=== PATIENT | male | born 1985 | race Two or more races ===

== ENCOUNTER 2017-02-10 19:27 | Emergency (ER) | payer BC ==
[~2017-02-10] VITALS: Ht 165.1 cm; Wt 81.6 kg
[2017-02-10 19:48] VITALS: BP 138/87
[2017-02-10] MEDS ORDERED: DIPHTH,PERTUSS(ACELL),TET TOX 0.5 ML DISP.SYRIN. VAX IM ONE (20:00)
[2017-02-10] MEDS ORDERED: MUPI15CR TP (20:15)
[2017-02-10] MEDS ORDERED: SULF1TAB24 PO (20:15)
--- NOTE | 2017-02-10 20:15 | PHYS DOC ---
Past Medical History Past Medical History: No Pertinent History Past Surgical History: No Surgical History Alcohol Use: None Drug Use: None Adult General Chief Complaint Chief Complaint: SKIN RASH/ABSCESS [facility] HPI Patient is a 31 year old male who presents with a rash on his right chin and lower lip that began 4 days ago was called supple and is now draining yellow purulent material. He is also complaining of subjective fevers. Review of Systems Review of Systems Constitutional: Subjective fevers Eyes: Denies change in visual acuity, redness, or eye pain [] HENT: Denies nasal congestion or sore throat [] Respiratory: Denies cough or shortness of breath [] Cardiovascular: No additional information not addressed in HPI [] Musculoskeletal: Denies back pain or joint pain [] Integument: rash on his right chin and lower lip Neurologic: Denies headache, focal weakness or sensory changes [] Current Medications Current Medications Current Medications Medications (Trade) Dose Ordered Sig/Carrol Start Time Stop Time Status Last Admin Dose Admin Diphtheria/ Tetanus/Acell Pertussis (Boostrix) 0.5 ml ONCE ONCE 02/10/17 20:00 02/10/17 20:04 DC Allergies Allergies Allergies Coded Allergies Type Severity Reaction Last Updated Verified No Known Drug Allergies 02/10/17 No Physical Exam Physical Exam Constitutional: Well developed, well nourished, no acute distress, non-toxic appearance. [] HENT: Normocephalic, atraumatic, bilateral external ears normal, oropharynx moist, no oral exudates, nose normal. [] Eyes: PERRLA, EOMI, conjunctiva normal, no discharge. [] Neck: Normal range of motion, no tenderness, supple, no stridor. [] Cardiovascular:Heart rate regular rhythm, no murmur [] Lungs & Thorax: Bilateral breath sounds clear to auscultation [] Skin: Patient has moderate amount of impetigo lesions on his right chin and right lower lip. Some of them are draining yellow drainage, there is crusty dry drainage on the lesions as well. Back: No tenderness, no CVA tenderness. [] Extremities: No tenderness, no cyanosis, no clubbing, ROM intact, no edema. [] Neurologic: Alert and oriented X 3, normal motor function, normal sensory function, no focal deficits noted. [] Psychologic: Affect normal, judgement normal, mood normal. [] Current Patient Data Vital Signs Vital Signs Date Time Temp Pulse Resp B/P (MAP) Pulse Ox O2 Delivery O2 Flow Rate FiO2 02/10/17 19:48 99.1 88 16 96 Room Air 99.1 EKG EKG [] Radiology/Procedures Radiology/Procedures [] Course & Med Decision Making Course & Med Decision Making Pertinent Labs and Imaging studies reviewed. (See chart for details) Patient has impetigo on his chin and lower lip that began as cold sores and a temperature of 99.1. He was discharged with Bactrim and Bactroban ointment. He was given tetanus in the ED, importance of good hygiene emphasis. Tylenol and Motrin recommended for pain or fever. Dragon Disclaimer Dragon Disclaimer This electronic medical record was generated, in whole or in part, using a voice recognition dictation system. Departure Departure Impression: Primary Impression: Fever Additional Impression: Impetigo Disposition: HOME, SELF-CARE Condition: STABLE Referrals: NO PCP (PCP) follow up with your doctor in one week Patient Instructions: Impetigo Additional Instructions: You were seen for impetigo lesions, this is a skin infection that usually starts from other infections like cold sores. You were given tetanus vaccine in the ED. Use the prescribed antibiotics as ordered. Maintain very good hand hygiene. Take Tylenol every 4 hours and Motrin every 6 hours as needed for pain or fever. Follow-up with your doctor in 1-2 weeks. Scripts Mupirocin Calcium (BACTROBAN CREAM) 15 Gm Cream..g. 1 TAPAN TP TID, #30 GM Prov: MARIFER MARC APRN 02/10/17 Sulfamethoxazole/Trimethoprim (BACTRIM DS TABLET) 1 Each Tablet 1 TAB PO BID, #20 TAB Prov: MARIFER MARC APRN 02/10/17 Problem Qualifiers Primary Impression: Fever Fever type: unspecified Qualified Codes: R50.9 - Fever, unspecified MARIFER MARC APRN Feb 10, 2017 20:15
== END 2017-02-10 20:27 | disposition home or self-care (01) ==
LOC: ER 20:05
DX: L01.00 Impetigo, unspecified (principal)
CPT/HCPCS: 90471; 90715; 99283-25

== ENCOUNTER 2017-02-21 14:25 | Emergency (ER) | payer BC ==
[~2017-02-21] VITALS: Ht 165.1 cm; Wt 81.6 kg
[~2017-02-21 14:25] MED LIST: MUPI15CR TP; SULF1TAB24 PO
[2017-02-21 14:34] VITALS: BP 127/72
[2017-02-21] MEDS ORDERED: CETI10TA22 PO (15:53)
[2017-02-21] MEDS ORDERED: PRED-220 PO (15:53)
[2017-02-21] MEDS ORDERED: FAMO20TA5 PO (15:53)
--- NOTE | 2017-02-21 15:53 | PHYS DOC ---
Past Medical History Past Medical History: No Pertinent History Past Surgical History: No Surgical History Alcohol Use: None Drug Use: None Adult General Chief Complaint Chief Complaint: SKIN RASH/ABSCESS [facility] HPI Patient is a 31 year old medical history who presents with a rash that began yesterday. Patient denies any known exposure though he is currently on Bactrim for impetigo. He states he only has 2 doses left he states he also had subjective fevers yesterday. Patient denies any sore throat. Review of Systems Review of Systems Constitutional: Subjective fever Eyes: Denies change in visual acuity, redness, or eye pain [] HENT: Denies nasal congestion or sore throat [] Respiratory: Denies cough or shortness of breath [] Cardiovascular: No additional information not addressed in HPI [] GI: Denies abdominal pain, nausea, vomiting, bloody stools or diarrhea [] : Denies dysuria or hematuria [] Musculoskeletal: Denies back pain or joint pain [] Integument: rash had impetigo a few days ago. Neurologic: Denies headache, focal weakness or sensory changes [] Endocrine: Denies polyuria or polydipsia [] Allergies Allergies Allergies Coded Allergies Type Severity Reaction Last Updated Verified No Known Drug Allergies 02/10/17 No Physical Exam Physical Exam Constitutional: Well developed, well nourished, no acute distress, non-toxic appearance. [] HENT: Normocephalic, atraumatic, bilateral external ears normal, oropharynx moist, no oral exudates, nose normal. [] Eyes: PERRLA, EOMI, conjunctiva normal, no discharge. [] Neck: Normal range of motion, no tenderness, supple, no stridor. [] Cardiovascular:Heart rate regular rhythm, no murmur [] Lungs & Thorax: Bilateral breath sounds clear to auscultation [] Abdomen: Bowel sounds normal, soft, no tenderness, no masses, no pulsatile masses. [] Skin: Patient has a fine erythematous papular rash on bilateral upper and lower extremities as well as torso. His impetigo lesion on the chin has improved tremendously. Back: No tenderness, no CVA tenderness. [] Extremities: No tenderness, no cyanosis, no clubbing, ROM intact, no edema. [] Neurologic: Alert and oriented X 3, normal motor function, normal sensory function, no focal deficits noted. [] Psychologic: Affect normal, judgement normal, mood normal. [] Current Patient Data Vital Signs Vital Signs Date Time Temp Pulse Resp B/P (MAP) Pulse Ox O2 Delivery O2 Flow Rate FiO2 02/21/17 14:34 98.2 79 20 99 Room Air 98.2 EKG EKG [] Radiology/Procedures Radiology/Procedures [] Course & Med Decision Making Course & Med Decision Making Pertinent Labs and Imaging studies reviewed. (See chart for details) Patient is in the ED with a rash and subjective fevers that began yesterday he is afebrile. He is currently on treatment for impetigo with Bactroban. His impetigo lesion on the chin has improved tremendously. He has 2 days left on the Bactrim. I recommended if he finishes the Bactrim. Given prednisone to clear the rash. Recommended Pepcid as well as Zyrtec. Follow-up with his own primary care doctor in 1-2 weeks. Dragon Disclaimer Dragon Disclaimer This electronic medical record was generated, in whole or in part, using a voice recognition dictation system. Departure Departure Impression: Primary Impression: Contact dermatitis Additional Impression: Fever Disposition: HOME, SELF-CARE Condition: STABLE Referrals: NO PCP (PCP) SHEILA BHAKTA MD follow up in one to two weeks Patient Instructions: Contact Dermatitis, [id number], Fever, Adult, Easy-to- Read Additional Instructions: You were seen with a rash. Please complete your current antibiotics for impetigo. Take Tylenol every 4 hours, Motrin every 6 hours for fever. Take the prescribed prednisone as ordered. Take the prescribed Pepcid and Zyrtec as ordered. Continue taking the Zyrtec until the rash clears out as well as the Pepcid. Follow-up with your doctor in 1-2 weeks. Scripts Famotidine (FAMOTIDINE) 20 Mg Tablet 20 MG PO DAILY, #14 TAB Prov: ARVINDAMARIFER [employer]ACILITY [employer]INEER 02/21/17 Cetirizine Hcl (ZYRTEC) 10 Mg Tablet 1 TAB PO DAILY, #30 TAB 2 Refills Prov: MUTUNGAMARIFER FACILITY ENGINEER 02/21/17 Prednisone (PREDNISONE) 10 Mg Tablet 10 MG PO UD for PREDNISONE TAPER, #39 TAB 0 Refills Take 3 tablets by mouth twice a day for 3 days, then take 2 tablets by mouth twice a day for 3 days, then take 1 tablet by mouth twice a day for 3 days, then take 1 tablet by mouth daily x 3 days, then stop. Prov: MARIFER MARC APRN 02/21/17 Problem Qualifiers Primary Impression: Contact dermatitis Contact dermatitis type: unspecified Contact dermatitis trigger: unspecified trigger Qualified Codes: L25.9 - Unspecified contact dermatitis, unspecified cause Additional Impression: Fever Fever type: unspecified Qualified Codes: R50.9 - Fever, unspecified MARIFER MARC APRN Feb 21, 2017 15:53
[2017-02-22 07:15] LABS: NEGATIVE OBC STREP NEG; POSITIVE OBC STREP POS
== END 2017-02-21 16:02 | disposition home or self-care (01) ==
LOC: ER 14:25
DX: L25.9 Unspecified contact dermatitis, unspecified cause (principal)
CPT/HCPCS: 87070; 87880; 99283